=== PATIENT | female | born 1995 | race African-American/Black ===

== ENCOUNTER 2017-01-03 19:27 | Emergency (ER) | payer BC ==
[~2017-01-03] VITALS: Ht 172.7 cm; Wt 95.5 kg
[2017-01-03 19:31] VITALS: BP 147/92; PULSE 105; TEMP 98.5
[2017-01-03] MEDS ORDERED: DOXYCYCLINE HY100 MG PO (20:12)
== END 2017-01-03 20:15 | disposition home or self-care (01) ==
LOC: COL.ER 19:27
DX: N76.4 Abscess of vulva (principal)

== ENCOUNTER 2017-02-18 16:06 | Emergency (ER) | payer BC ==
[~2017-02-18] VITALS: Ht 172.7 cm; Wt 94.1 kg
[~2017-02-18 16:06] MED LIST: DOXYCYCLINE HY100 MG PO
[2017-02-18 16:11] VITALS: BP 127/82; TEMP 98.1
[2017-02-18 16:45] VITALS: PULSE 78
== END 2017-02-18 16:47 | disposition home or self-care (01) ==
LOC: COL.ER 16:06
DX: L03.317 Cellulitis of buttock (principal)

== ENCOUNTER 2017-09-25 10:45 | Emergency (ER) | payer BC ==
[~2017-09-25] VITALS: Ht 172.7 cm; Wt 97.7 kg
[2017-09-25 10:48] VITALS: TEMP 97.9
[2017-09-25 11:34] LABS: COLLECTION METHOD CLEAN CATCH
[2017-09-25 11:41] LABS: BASO # 0.1 (0.0-0.2); BASO % 0.7 % (0.0-2.0); EOS # 0.4 (0.0-0.7); EOS % 5.2 % (0-4.0); GRAN # 5.7 (1.4-6.5); GRAN % 73.5 % (42.2-75.2); HEMATOCRIT 41.1 % (37.0-47.0); HEMOGLOBIN 13.7 g/dl (12.5-16.0); LYMPH % 12.5 % (20.0-51.0); MEAN CELL VOLUME 81 fl (80.0-100.0); MEAN CORPUSCULAR HEMOGLOBIN 27 pg (27.0-31.0); MEAN CORPUSCULAR HGB CONC 33 g/dl (33.0-37.0); MEAN PLATELET VOLUME 11.2 fl (7.4-10.4); MONO # 0.6 (0.1-0.6); MONO % 7.8 % (1.7-9.3); PLATELET COUNT 240 K/mm3 (130-400); RED BLOOD COUNT 5.06 M/mm3 (4.10-5.30)
[2017-09-25 11:49] LABS: MUCOUS Present /lpf; PH 6 (5-8); URINE APPEARANCE Clear; URINE BACTERIA Rare /hpf; URINE BILIRUBIN Negative (NEGATIVE); URINE BLOOD Negative (NEGATIVE); URINE COLOR Yellow; URINE GLUCOSE Negative (NEGATIVE); URINE KETONE Trace (NEGATIVE); URINE LEUKOCYTE ESTERASE Negative (NEGATIVE); URINE NITRATE Negative (NEGATIVE); URINE PROTEIN(semi-quant) Negative (NEGATIVE); URINE RBC 0-2 /hpf; URINE UROBILINOGEN Negative (NEGATIVE)
[2017-09-25 11:53] LABS: ALBUMIN 4.5 gm/dL (3.5-5.0); BILIRUBIN,TOTAL 0.8 mg/dL (0.0-1.0); C-REACTIVE PROTEIN 0.7 mg/dL (0.0-0.9); CALCIUM 9.7 mg/dL (8.4-10.2); CREATININE, serum 0.78 mg/dL (0.52-1.25); POTASSIUM 4.2 mmol/L (3.4-5.0); TOTAL PROTEIN 7.3 gm/dL (6.4-8.2)
[2017-09-25] MEDS ORDERED: FLAGYL500 MG PO (13:49)
[2017-09-25] MEDS ORDERED: DOXYCYCLINE 10100 MG PO (13:49)
[2017-09-25 14:28] VITALS: BP 144/81; PULSE 62
== END 2017-09-25 14:31 | disposition home or self-care (01) ==
LOC: COL.ER 10:45
PROVIDERS: Nurse Practitioner
DX: N76.0 Acute vaginitis (principal); N73.9 Female pelvic inflammatory disease, unspecified; J45.909 Unspecified asthma, uncomplicated; F17.210 Nicotine dependence, cigarettes, uncomplicated; Z90.49 Acquired absence of other specified parts of digestive tract
CPT/HCPCS: J0696; J1170; J2405; J7030

== ENCOUNTER 2020-12-16 02:56 | Inpatient (IN) | payer BC ==
[~2020-12-16] VITALS: Ht 172.7 cm; Wt 122.7 kg
[2020-12-16] VITALS (65 sets, daily range): BP systolic 104–154; BP diastolic 41–98; PULSE 61–120; TEMP 97.4–99.8
[~2020-12-16 02:56] MED LIST changes: +DOXYCYCLINE 10100 MG PO; +FLAGYL500 MG PO
--- NOTE | 2020-12-16 03:05 | NUR ---
PT ARRIVED TO THE UNIT AMBULATORY WITH SPOUSE WITH CONCERNS OF POSSIBLE SROM. PT ORIENTED TO ROOM, CHANGED INTO GOWN, EFMX2 APPLIED, AMNIOSWAB PERFORMED AND WAS POSITIVE, VS OBTAINED, SVE PERFORMED.
[2020-12-16] MEDS ORDERED: PRENATAL PO (03:26)
[2020-12-16 04:05] LABS: BASO % 0.5 % (0.0-2.0); EOS # 0.1 (0.0-0.7); EOS % 1.9 % (0-4.0); GRAN # 4.6 (1.4-6.5); GRAN % 63.6 % (42.2-75.2); HEMOGLOBIN 12.2 g/dl (12.5-16.0); LYMPH # 1.8 (1.2-3.4); LYMPH % 25.1 % (20.0-51.0); MEAN CELL VOLUME 79 fl (80.0-100.0); MEAN CORPUSCULAR HEMOGLOBIN 27 pg (27.0-31.0); MEAN CORPUSCULAR HGB CONC 33 g/dl (33.0-37.0); MEAN PLATELET VOLUME 11.4 fl (7.4-10.4); MONO # 0.6 (0.1-0.6); MONO % 8.5 % (1.7-9.3); PLATELET COUNT 278 K/mm3 (130-400); REDCELL DISTRIBUTION WIDTH-CV 12.2 % (11.5-14.5)
[2020-12-16 04:06] LABS: HEMATOCRIT 36.5 % (37.0-47.0)
--- NOTE | 2020-12-16 05:33 | NUR ---
0533- PT TILTED TO LEFT WEDGE FOR FHT'S. PT DENIES FURTHER NEEDS.
--- NOTE | 2020-12-16 06:04 | NUR ---
0604- PT TILTED TO RIGHT WEDGE FOR HEART TONES, LR BOLUS STARTED.
--- NOTE | 2020-12-16 08:05 | NUR ---
Pt sitting upright for epidural placement. Difficulty tracing FHR due to maternal position. FHR audible. RN at bedside adjusting monitors.
--- NOTE | 2020-12-16 08:51 | NUR ---
Roles on unit. Reviews FHR strip. Continue expectant management of labor.
--- NOTE | 2020-12-16 13:00 | NUR ---
Difficulty tracing ctx due to maternal position. RN at bedside adjusting monitors. Ctx palpate moderate with no decrease in FHR after uterine relaxation.
--- NOTE | 2020-12-16 14:41 | NUR ---
Late deceleration noted. RN at bedside. SVE per this RN /-1. Pt repositioned RL. Pitocin shut off. LR bolus infusing. O2 applied via simple mask at 10L. Tia Roles notified. FHR in the 50-70s for 2 minutes. FHR returning to the 120s. Orders to keep pitocin off and recover for 30 minutes. 1449- Pt repositioned LL. Anay Roles notified of late decelerations with past 2 contractions. Provider on route to unit.
--- NOTE | 2020-12-16 15:10 | NUR ---
Roles at bedside. Discusses FHR v. SVE changes and concerns with lack of cervical change and HR pattern. Options discussed c/s v. continuing to labor. Pt opts for c/s. Pt prepped for OR.
[2020-12-16 15:59] LABS: TRICYCLIC ANTIDEPRESS URINE NEGATIVE
--- NOTE | 2020-12-16 18:20 | NUR ---
Report recieved. Resting in bed. VS obtained. Fundus firm without any free flow lochia. Urinary catheter empty at this time. IVF infusing per order.
--- NOTE | 2020-12-16 20:40 | NUR ---
Assessment completed. Unable to lift right leg off her bed. Pericare provided and fresh pad, blankets, and gown on.
--- NOTE | 2020-12-16 22:30 | NUR ---
Unable to lift right leg off the bed.
[2020-12-17 00:30] VITALS: BP 104/54; PULSE 70; TEMP 98.1
--- NOTE | 2020-12-17 00:30 | NUR ---
Finished attempt. Able to lift both legs off her bed. VS done and percocet administered. Ambulated well to restroom. Sylvester catheter dc'd per physician order. 1700ml of tea color urine drained from sylvester. Ambulating well in room. POC reviewed.
[2020-12-17 04:30] VITALS: BP 128/71; PULSE 78; TEMP 97.8
[2020-12-17 07:10] VITALS: BP 102/59; PULSE 75; TEMP 98.2
[2020-12-17 07:46] LABS: HEMATOCRIT 29.7 % (37.0-47.0)
[2020-12-17 12:00] VITALS: BP 112/60; PULSE 87; TEMP 98
[2020-12-17 16:10] VITALS: BP 113/53; PULSE 77; TEMP 98
[2020-12-17 19:15] VITALS: BP 122/57; PULSE 73; TEMP 98.8
[2020-12-18 07:23] VITALS: BP 132/6; PULSE 72; TEMP 98
[2020-12-18] MEDS ORDERED: IBU600 MG PO (08:52)
[2020-12-18] MEDS ORDERED: PERCOCET 325 MG1 TA2 PO (08:52)
--- NOTE | 2020-12-18 09:07 | NUR ---
Initial visit; Parents thanked for offering congratulations for the of their son. thanked family for choosing [facility].
--- NOTE | 2020-12-18 09:15 | NUR ---
[employer] responded to consult in OB as patient reported a history of marijuana use. SW met with patient and patient's , Nasim (ph#[phone]) who live here in [place]. Both and patient and Nasim work at [employer]. Patient plans to take six weeks off of work then they have a nanny arranged to care for baby. Patient states they could not do traditional day care due to their work schedule. Patient states her mother, Elicia (ph#[phone]) lives about an hour and forty five minutes away and Nasim's mother lives about an hour away. Patient states this is her first child. Patient reports she has all supplies needed for baby. Patient states she has attempted to breastfeed but they may switch to formula. Patient does not think she will qualify for WIC, but states she has their contact information and may try to apply anyway. SW provided [facility] Guide to patient who states she lives very close to the [facility]. SW addressed patient's history of marijuana use. Patient states she was using marijuana but quit as soon as she found out she was . Patient was negative at her office visit (05/28/20) and upon delivery (12/16/20). Patient has no concerns about returning home with baby. MARY ANN collaborated the above information to RNLanie who has no further concerns at this time.
--- NOTE | 2020-12-20 11:57 | NUR ---
Patient's infant's cord blood was negative for illegal drugs in system.
== END 2020-12-18 13:15 | disposition home or self-care (01) | DRG 788 ==
LOC: LDRO 02:56 → LDR 03:18 → OB 17:00
PROVIDERS: Obstetrics & Gynecology; ADMIT Obstetrics & Gynecology
PROC: 10D00Z1 Extraction of Products of Conception, Low, Open Approach (ICD-10-PCS; principal; 2020-12-16)
DX: O99.02 Anemia complicating childbirth (principal); O76 Abnormality in fetal heart rate and rhythm complicating labor and delivery; Z86.16 Personal history of COVID-19; Z86.14 Personal history of Methicillin resistant Staphylococcus aureus infection; O99.214 Obesity complicating childbirth; E66.9 Obesity, unspecified; D57.3 Sickle-cell trait; Z3A.40 40 weeks gestation of pregnancy; Z37.0 Single live birth
CPT/HCPCS: J0690; J1100; J1885; J2405; J2590; J3010; J7120

== ENCOUNTER → 2020-12-19 | Outpatient (CLI) | payer SELFPAY ==
[~2020-12-19] MED LIST changes: +IBU600 MG PO; +PERCOCET 325 MG1 TA2 PO; +PRENATAL PO
== END ==
LOC: ZCOL.LAB
DX: Z20.822 Contact with and (suspected) exposure to COVID-19 (principal)

== ENCOUNTER 2021-02-19 07:04 | Emergency (ER) | payer BC ==
[~2021-02-19] VITALS: Ht 172.7 cm; Wt 122.7 kg
[2021-02-19 07:10] VITALS: TEMP 97.7
[2021-02-19 07:38] LABS: COLLECTION METHOD CLEAN CATCH
[2021-02-19 07:43] LABS: BASO % 0.7 % (0.0-2.0); EOS # 0.4 (0.0-0.7); EOS % 6.5 % (0-4.0); GRAN # 2.6 (1.4-6.5); GRAN % 46.3 % (42.2-75.2); HEMOGLOBIN 11.3 g/dl (12.5-16.0); LYMPH % 36.1 % (20.0-51.0); MEAN CELL VOLUME 76 fl (80.0-100.0); MEAN CORPUSCULAR HEMOGLOBIN 24 pg (27.0-31.0); MEAN CORPUSCULAR HGB CONC 31 g/dl (33.0-37.0); MEAN PLATELET VOLUME 11.5 fl (7.4-10.4); MONO # 0.6 (0.1-0.6); MONO % 10.2 % (1.7-9.3); PLATELET COUNT 258 K/mm3 (130-400); RED BLOOD COUNT 4.72 M/mm3 (4.10-5.30)
[2021-02-19 07:46] LABS: MUCOUS Present /lpf; PH 5 (5-8); SQUAMOUS EPITHELIAL 0-2 /hpf; URINE APPEARANCE Clear; URINE BACTERIA None Seen /hpf; URINE BILIRUBIN Negative (NEGATIVE); URINE BLOOD Negative (NEGATIVE); URINE COLOR Yellow; URINE GLUCOSE Negative (NEGATIVE); URINE KETONE Negative (NEGATIVE); URINE LEUKOCYTE ESTERASE Negative (NEGATIVE); URINE NITRATE Negative (NEGATIVE); URINE PROTEIN(semi-quant) Negative (NEGATIVE); URINE RBC 0-2 /hpf; URINE UROBILINOGEN Negative (NEGATIVE)
[2021-02-19 07:55] LABS: ALBUMIN 3.6 gm/dL (3.5-5.0); BILIRUBIN,TOTAL 0.3 mg/dL (0.0-1.0); CALCIUM 8.8 mg/dL (8.4-10.2); CREATININE, serum 0.9 (0.52-1.25); POTASSIUM 3.8 mmol/L (3.4-5.0); TOTAL PROTEIN 6.6 gm/dL (6.4-8.2)
[2021-02-19 09:39] VITALS: BP 118/82; PULSE 62
== END 2021-02-19 09:38 | disposition home or self-care (01) ==
LOC: COL.ER 07:04
PROVIDERS: Emergency Medicine
DX: R10.30 Lower abdominal pain, unspecified (principal); F17.210 Nicotine dependence, cigarettes, uncomplicated; Z32.02 Encounter for pregnancy test, result negative
CPT/HCPCS: J1885; J3010